=== PATIENT | male | born 1980 | race Two or more races ===

== ENCOUNTER 2019-07-20 20:53 | Inpatient (IN) | payer MEDICAID, OTHER ==
[~2019-07-20] VITALS: Ht 188 cm; Wt 110.7 kg
--- NOTE | 2019-07-20 20:55 | NUR ---
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 PT WAS TRIAGED AND TAKEN TO ER #4. PT WAS PLACED ON THE MONITOR AND CONTINUOUS PULSE OX. RESP EVEN AND UNLABORED. NO MEDICATIONS GIVEN IN THE FIELD. 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
--- NOTE | 2019-07-20 21:25 | NUR ---
IV INSERTION ATTEMPT X 2 UNSUCCESSFUL. PHLEOBOTMIST IS AT THE BEDSIDE AND UNABLE TO DRAW LABS.
--- NOTE | 2019-07-20 21:40 | NUR ---
PANEL BEATER IS AT THE BEDSIDE.
--- NOTE | 2019-07-20 21:49 | NUR ---
XRAY IS AT THE BEDSIDE.
[2019-07-20 21:58] LABS: BASOPHILS # (AUTO) 0.1 /CMM (0.0-0.2); BASOPHILS % (AUTO) 1.3 % (0.0-2.0); EOSINOPHILS % (AUTO) 1.8 % (0.0-6.0); HEMATOCRIT 41 % (39-51); HEMOGLOBIN 14.1 g/dL (13.5-17.5); LYMPHOCYTES # (AUTO) 2.1 /CMM (0.8-4.8); LYMPHOCYTES % (AUTO) 50.5 % (20.0-44.0); MEAN CORPUSCULAR HGB CONC 35 g/dl (31.0-36.0); MEAN CORPUSCULAR VOLUME 92 fL (80-96); MONOCYTES # (AUTO) 0.4 /CMM (0.1-1.30); MONOCYTES % (AUTO) 9.9 % (2.0-12.0); NEUTROPHILS # (AUTO) 1.5 /CMM (1.8-8.9); NEUTROPHILS % (AUTO) 36.5 % (43.0-81.0); PLATELET COUNT (AUTO) 190 /CMM (150-450); RED BLOOD CELL COUNT(AUTO) 4.42 MIL/uL (4.5-6.0); WHITE BLOOD COUNT (AUTO) 4.2 K/uL (4.3-11.0)
[2019-07-20 22:08] LABS: CALCIUM, SERUM 9.5 mg/dL (8.5-10.1); CARBON DIOXIDE 29 mmol/L (21-32); CHLORIDE 105 mmol/L (98-107); CREATININE 1.2 mg/dL (0.6-1.3); GLUCOSE 75 mg/dL (74-106); POTASSIUM 3.4 mmol/L (3.5-5.1); SODIUM SERUM 141 mmol/L (136-145); UREA NITROGEN, BLOOD 20 mg/dL (7-18)
[2019-07-20 22:16] LABS: ALANINE AMINOTRANSFERASE 31 U/L (12-78); ALBUMIN 3.6 g/dL (3.4-5.0); ALKALINE PHOSPHATASE 79 U/L (46-116); ASPARTATE AMINOTRANSFERASE 17 U/L (15-37); BILIRUBIN,DIRECT 0.1 mg/dL (0.0-0.2); BILIRUBIN,TOTAL 0.2 mg/dL (0.2-1.0); TOTAL PROTEIN, SERUM 7.7 g/dL (6.4-8.2)
[2019-07-20] MEDS ORDERED: IBUPROFEN 600 MG TABLET PO ONE ×2 (23:00→23:09)
--- NOTE | 2019-07-20 23:30 | NUR ---
Note zac in EDM - 07/20/19 at 2335 by [email or web address] PT IS AMBULATING WITH THE WALKER. PT HAS A CAM WALKER BOOT ON THE RT FOOT. PT HAS A SLOW STEADY GAIT. PT STATED THAT THE FOOT FEELS OK, BUT STATED THAT SHE IS WALKING SLOW DUE TO THE RT RIB PAIN. PT'S DAUGHTER IS ASSISTING THE PT.
--- NOTE | 2019-07-20 23:31 | NUR ---
REPORT GIVEN TO RASHI ASHER.
[2019-07-21] MEDS ORDERED: ONDANSETRON HCL/PF 4 MG/2 ML VIAL ONE (00:16)
[2019-07-21] MEDS ORDERED: MORPHINE SULFATE INJ 4 MG/ML DISP.SYRIN ONE (00:17)
[2019-07-21] MEDS ORDERED: ONDANSETRON HCL/PF 4 MG/2 ML VIAL IVP PRN (00:30)
[2019-07-21] MEDS ORDERED: POTASSIUM CHLORIDE 20 MEQ TAB.PRT.SR PO ONE (00:30)
[2019-07-21] MEDS ORDERED: MAGNESIUM HYDROXIDE 30 ML UDC PO PRN (00:30)
[2019-07-21] MEDS ORDERED: ACETAMINOPHEN 325 MG TABLET PO PRN (00:30)
[2019-07-21] MEDS ORDERED: HYDROCODONE/APAP 5/325MG 1 EACH TABLET PO PRN (00:30)
[2019-07-21] MEDS ORDERED: ONDANSETRON HCL/PF 4 MG/2 ML VIAL IVP ONE (00:30)
[2019-07-21] MEDS ORDERED: MORPHINE SULFATE INJ 2 MG/ML DISP.SYRIN IV ONE (00:30)
[2019-07-21] MEDS ORDERED: MAG HYDROX/AL HYDROX/SIMETH 30 ML UDC PO PRN (00:30)
[2019-07-21] MEDS ORDERED: Z GUARD REMEDY 2 OZ OINT TP PRN (00:30)
[2019-07-21 00:45] VITALS: BP 143/84
--- NOTE | 2019-07-21 00:55 | NUR ---
MS/ PILOT SUPERVISOR ADMITTING NOTES: RECEIVED PATIENT FROM ER VIA BED 0045. REPORT GIVEN BY KWAME ER NURSE. PATIENT ARRIVED IN STABLE CONDITION. A/OX4. VERBALLY RESPONSIVE AND ABLE TO MAKE NEEDS KNOWN. VITAL SIGNS TAKEN UPON ARRIVAL. BP: 143/66. HR:66 TEMP: 97.6 O2 SAT:97%. RR: 20. ON TELE MONITOR WITH READING OF SR WITH HR ON THE 60S. PATIENT IS ON ROOM AIR, BREATHING EVEN AND UNLABORED. NO SOB NOTED, NO S/S OF ACUTE DISTRESS OR DISCOMFORT. NO COMPLAINS OF PAIN AT THIS TIME. PER PATIENT "THE MORPHINE THEY GAVE ME IN THE ER HELPED". IV ACCESS LOCATED ON THE LEFT AC #20G, PATENT AND INTACT WITH 0.9% NS 1000 ML RUNNING AT 100MLS/HR. BELONGINGS CHECKED. SKIN ASSESSMENT DONE AND PICTURES DOCUMENTED. SAFETY PRECAUTIONS INITIATED. BED IS IN LOW LOCKED POSITION WITH HOB ELEVATED. SIDE RAILS UP X2. CALL LIGHT WITHIN REACH. WILL CONTINUE TO MONITOR PATIENT ACCORDINGLY.
[2019-07-21] MEDS: Magnesium 1GM/D5W 100ML PREMIX 100 ML IV SCH ×2 (01:33→02:45)
[2019-07-21] MEDS: IV NS 0.9% 1,000 ML IV SCH ×2 (01:33→14:51)
[2019-07-21 04:00] VITALS: BP 105/61
[2019-07-21 04:03] LABS: EOSINOPHILS % (AUTO) 2.6 % (0.0-6.0); HEMATOCRIT 39 % (39-51); HEMOGLOBIN 13.3 g/dL (13.5-17.5); LYMPHOCYTES # (AUTO) 2.2 /CMM (0.8-4.8); LYMPHOCYTES % (AUTO) 58.8 % (20.0-44.0); MEAN CORPUSCULAR HGB CONC 34 g/dl (31.0-36.0); MEAN CORPUSCULAR VOLUME 91 fL (80-96); MONOCYTES # (AUTO) 0.4 /CMM (0.1-1.30); MONOCYTES % (AUTO) 9.9 % (2.0-12.0); NEUTROPHILS # (AUTO) 1.1 /CMM (1.8-8.9); NEUTROPHILS % (AUTO) 27.7 % (43.0-81.0); PLATELET COUNT (AUTO) 168 /CMM (150-450); RED BLOOD CELL COUNT(AUTO) 4.26 MIL/uL (4.5-6.0); WHITE BLOOD COUNT (AUTO) 3.8 K/uL (4.3-11.0)
[2019-07-21 04:15] LABS: CREATININE 1.2 mg/dL (0.6-1.3); MAGNESIUM 2.5 mg/dL (1.8-2.4); PHOSPHORUS 4.1 mg/dL (2.5-4.9); POTASSIUM 3.6 mmol/L (3.5-5.1)
--- NOTE | 2019-07-21 06:11 | NUR ---
MS/WELDING MACHINE OPERATOR/TENDER CLOSING NOTES: PATIENT IS ASLEEP IN BED AND STABLE AND EASILY AROUSABLE ON VERBAL STIMULI. ABLE TO MAKE NEEDS KNOWN. A/O X4. HOB ELEVATED. ON ROOM AIR, BREATHING EVEN AND UNLABORED. NO SOB NOTED, NO S/S OF ACUTE DISTRESS. NO COMPLAINS OF PAIN AT THIS TIME. PATIENT SLEPT WELL THROUGHOUT THE SHIFT. KEPT PATIENT WARM AND COMFORTABLE. ALL NURSING NEEDS ATTENDED AND MET. ALL DUE MEDS GIVEN ORDERED. TOLERATED WELL. IV ACCESS ON THE LEFT AC #20G IS INTACT, AND PATENT, RUNNING NS @ 100MLS/HR. ON CARDIAC DIET. SAFETY MEASURES ARE KEPT IN PLACE. BED IS IN LOW , LOCKED POSITION WITH SIDE RAILS UP X2. CALL LIGHT WITHIN REACH. WILL ENDORSE TO DAY SHIFT NURSE FOR PANFILO.
--- NOTE | 2019-07-21 07:30 | NUR ---
RECEIVED PT. ALERT AND ORIENTED X4.ON TELE.NPO TILL SEEN BY DR. BRADFORD.
[2019-07-21 08:00] VITALS: BP 120/75
--- NOTE | 2019-07-21 08:30 | NUR ---
OFF FLOOR FOR CT ANGIO.
[2019-07-21] MEDS ORDERED: IV NS 0.9% 250 ML IV ONE (09:16)
[2019-07-21] MEDS ORDERED: CT SWABBABLE VALVE TRANS SET 1 EA INFUS.SET MC ONE (09:16)
[2019-07-21] MEDS ORDERED: IOHEXOL-350 100 ML VIAL IV ONE (09:16)
[2019-07-21] MEDS ORDERED: NITROGLYCERIN 0.4 MG/TAB BOTTLE SL ONE (09:30)
[2019-07-21] MEDS ORDERED: METOPROLOL TARTRATE INJ 5 MG/5 ML AMPUL IVP PRN (09:30)
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
[2019-07-21 12:00] VITALS: BP 119/75
--- NOTE | 2019-07-21 14:50 | NUR ---
Social service consult requested by Dr. Verduzco for homelessness. Pt. is a 38 year old male who was admitted to [facility] for chest pain. LUÍS met with the pt. bedside. Pt. is alert and oriented x 4. Pt. is cooperative and cordial with SW during the assessment. Pt. is from [place] and moved to [place] a few months ago. [facility]. Pt. receives GR and food stamps. LUÍS offered pt. intermediate placement, however, pt. declined. LUÍS informed pt. about [facility] and provided him with information to the center. Pt. denies any alcohol, drugs and cigarettes use. Pt. denies suicidal and homicidal ideations and visual/auditory hallucinations at this time. LUÍS to provide pt. with list of homeless intermediate/resources prior to discharge. Pt. will require a TAP card upon discharge.
[2019-07-21] MEDS ORDERED: NITROGLYCERIN 0.4 MG/TAB BOTTLE ONE (15:27)
[2019-07-21 16:00] VITALS: BP 135/70
--- NOTE | 2019-07-21 17:36 | NUR ---
CT OF CHEST DONE.
--- NOTE | 2019-07-21 20:01 | NUR ---
CERT PHARMACY TECH PM NOTES PATIENT CURRENTLY RESTING IN BED, A/O X4. NO SIGNS OF ACUTE DISTRESS NOTED. ABLE TO MAKE NEEDS KNOWN. DENIES PAIN OR DISCOMFORT AT THIS TIME. IV LOCATED ON JERED #20, PATENT AND INTACT. ON TELE MONITOR SB 58 HR. PATIENT AMBULATES INDEPENDENTLY. SAFETY PRECAUTIONS IN PLACE WITH BED IN LOWEST POSITION, LOCKED, BED ALARM ON, AND CALL LIGHT WITHIN REACH.
[2019-07-21 20:41] VITALS: BP 123/74
[2019-07-22] VITALS: BP 115/69
[2019-07-22] MEDS: IV NS 0.9% 1,000 ML IV SCH ×3 (02:04→16:30)
[2019-07-22 04:38] VITALS: BP 127/77
--- NOTE | 2019-07-22 07:07 | NUR ---
STEM SIZER CLOSING NOTES PATIENT IN BED SLEEPING, AROUSES EASILY. NO S/SX OF ACUTE DISTRESS NOTED. DENIES PAIN OR DISCOMFORT. ON TELE MONITOR WITH READING SB 60. IV LOCATED ON L AC #20. ALL NEEDS ATTENDEDD ANTICIPATED. SAFETY PRECAUTIONS IN PLACE WITH BED IN LOWEST POSITION, LOCKED, BED ALARM ON, AND CALL LIGHT WITHIN REACH.
--- NOTE | 2019-07-22 07:10 | NUR ---
ms rn received on bed, awake,alert,oriented x4,not in any form of distress, respirations even and unlabored,no sob noted,denies pain at this time,all needs attended.
[2019-07-22 08:00] VITALS: BP 135/88
--- NOTE | 2019-07-22 08:30 | NUR ---
ms espinosa breakfast served,due meds given,tolerated well.
--- NOTE | 2019-07-22 08:40 | NUR ---
ms rn was seen by dr. aldo williamson/ orders made and carried out.
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
[2019-07-22 16:00] VITALS: BP 123/78
--- NOTE | 2019-07-22 16:00 | NUR ---
ms rn on bed, no distress noted.
--- NOTE | 2019-07-22 17:17 | NUR ---
ms rn on bed, will monitor patient.
[2019-07-22 20:44] VITALS: BP 124/73
[2019-07-22] MEDS: ZOLPIDEM TARTRATE 5 MG TABLET PO PRN (21:06)
[2019-07-23] VITALS: BP 110/89
[2019-07-23 04:00] VITALS: BP 106/56
[2019-07-23] MEDS: IV NS 0.9% 1,000 ML IV SCH ×3 (05:16→21:30)
--- NOTE | 2019-07-23 06:38 | NUR ---
MS RN NOTES AWAKE & RESPONSIVE. NOT IN ANY DISTRESS. NO SOB NOTED. DENIES ANY PAIN OR DISCOMFORT AT THIS TIME. WITH IVF INFUSING WELL. MONITORED ACCORDINGLY. CALL LIGHT WITHIN REACH. BED IN LOWEST POSITION. SR UP X 2 FOR SAFETY. WILL ENDORSE TO NEXT SHIFT.
[2019-07-23 08:00] VITALS: BP 135/90
--- NOTE | 2019-07-23 08:00 | NUR ---
MS RN AM NOTES PATIENT CURRENTLY RESTING IN BED, A/O X4. NO SIGNS OF ACUTE DISTRESS NOTED. ABLE TO MAKE NEEDS KNOWN. DENIES CHEST PAIN.DENIES PAIN OR DISCOMFORT AT THIS TIME. IV LOCATED ON JERED #20, PATENT AND INTACT.WITH IVF NS INFUSING WELL AT 100 ML/HR. PATIENT AMBULATES INDEPENDENTLY. SAFETY PRECAUTIONS IN PLACE WITH BED IN LOWEST POSITION, LOCKED, BED ALARM ON, AND CALL LIGHT WITHIN REACH.
[2019-07-23 16:00] VITALS: BP 134/177
--- NOTE | 2019-07-23 17:19 | NUR ---
PT RESTING IN BED DENYING ANY CHEST PAIN OR DISTRESS.WITH ONGOING IVF OF D51/2 NS INFUSING WELL.CALL LIGHT PLACED WITHIN REACH.
--- NOTE | 2019-07-23 19:32 | NUR ---
MS RN RECEIVE PT IN BED A/O X4, STABLE AND NOT IN DISTRESS, NO CHEST PAIN AT THIS TIME. SAFETY MEASURES AT ALL TIMES. WILL CONT TO MTR.
[2019-07-23 20:00] VITALS: BP 104/65
[2019-07-23] MEDS: ZOLPIDEM TARTRATE 5 MG TABLET PO PRN (21:30)
--- NOTE | 2019-07-24 06:19 | NUR ---
PT ASLEEP AND EASILY AWAKEN, RESPIRATIONS EVEN AND UNLABORED, NO S/S OF DISTRESS, NO COMPLAIN OF CHEST PAIN AT THIS TIME. KEPT CLEAN, DRY AND COMFORTABLE. SAFETY MEASURES AT ALL TIMES. WILL ENDORSE NEXT SHIFT POC.
[2019-07-24] MEDS ORDERED: IV NS 0.9% 1,000 ML IV PRN (07:30)
--- NOTE | 2019-07-24 07:30 | NUR ---
MS/RN - Assessment Patient is A/O x 4, denies chest pain at this time, no apparent distress, stable on room air. IVF NS at 100 ml/hr on the LAC with no signs of infiltration. Skin is intact except for right arm scratch laughlin. Patient is ambulatory with steady gait. No labs today. timber mill worker provided homeless fci/resources to the patient and will be provided a TAP card upon discharge. All needs attended. Will continue with current plan of care
[2019-07-24 08:00] VITALS: BP 122/71
--- NOTE | 2019-07-24 10:00 | NUR ---
MS/RN - Notes Patient resting comfortably, requested to eat lunch first before leaving the hospital.
--- NOTE | 2019-07-24 13:30 | NUR ---
MS/RN - Notes Patient took a shower.
--- NOTE | 2019-07-24 15:40 | NUR ---
MS/RN - Discharge Patient is alert and oriented x 4, discharged to assisted in stable condition, remain afebrile, denies chest pain, not in any form of distress, ambulatory with steady gait, denies SI/HI, no visual or auditory hallucinations at this time. Reviewed discharge instructions with patient and he verbalized full understanding of all teachings including follow up with PCP in one week. Seek immediate medical attention for worsening symptoms, chest pain, shortness of breath, palpitations, abdominal pain or distention, intractable nausea and vomiting, diarrhea, hematochezia, melena, weakness, loss of consciousness, neurological deficit, or any other emergent concerns. All belongings with patient and he deny any missing items. Patient refused photos to be taken of skin, no breakdown. Saline lock removed on the LAC with catheter tip intact, no redness, no swelling noted at the site. Patient signed discharge paperwork/homeless waiver form and copies were given per protocol. Snacks, TAP card and appropriate clothing were given to the patient.
== END 2019-07-24 15:40 | disposition home or self-care (01) | DRG 203 ==
LOC: ER 20:55 → TELE 23:20 → MED 07-22 08:29
PROVIDERS: ADMIT Internal Medicine; ATTEND Internal Medicine
DX: M94.0 Chondrocostal junction syndrome [Tietze] (principal); I48.92 Unspecified atrial flutter; D64.9 Anemia, unspecified; I10 Essential (primary) hypertension; E87.6 Hypokalemia; E78.5 Hyperlipidemia, unspecified; E66.9 Obesity, unspecified; Z68.31 Body mass index [BMI] 31.0-31.9, adult; D72.819 Decreased white blood cell count, unspecified; D72.820 Lymphocytosis (symptomatic)
CPT/HCPCS: 36415; 71045-TC; 71250-TC; 75574; 80048-TC; 80061-TC; 80076-TC; 83615-TC; 83690-TC; 83735-TC; 84100-TC; 84484-TC; 85025-TC; 87081-TC; 93307-TC; G0378; J2270; J2405; J3475; J7030; J7050; Q9967

== ENCOUNTER 2019-07-24 23:05 | Emergency (ER) | payer MEDICAID ==
[~2019-07-24] VITALS: Ht 188 cm; Wt 110.7 kg
[2019-07-24 23:33] VITALS: BP 146/98
[2019-07-24] MEDS ORDERED: LORAZEPAM 1 MG TABLET ONE (23:56)
[2019-07-25] MEDS ORDERED: LORAZEPAM 1 MG TABLET PO ONE
== END 2019-07-25 00:21 | disposition home or self-care (01) ==
LOC: ER 23:06
DX: F41.9 Anxiety disorder, unspecified (principal); I48.91 Unspecified atrial fibrillation; Z60.2 Problems related to living alone

== ENCOUNTER 2024-03-28 17:39 | Emergency (ER) | payer MEDICAID, OTHER ==
[~2024-03-28] VITALS: Ht 185.4 cm; Wt 108.9 kg
[2024-03-28 18:44] LABS: BASOPHILS % (AUTO) 0.3 % (0.0-2.0); EOSINOPHILS # (AUTO) 0.1 K/uL (0.0-0.7); HEMATOCRIT 44 % (39-51); HEMOGLOBIN 14.9 g/dL (13.5-17.5); LYMPHOCYTES # (AUTO) 1.5 K/uL (0.8-4.8); LYMPHOCYTES % (AUTO) 41.1 % (20.0-44.0); MEAN CORPUSCULAR HEMOGLOBIN 31 PG (26.0-33.0); MEAN CORPUSCULAR HGB CONC 34 g/dl (31.0-36.0); MEAN CORPUSCULAR VOLUME 90 fL (80-96); MONOCYTES # (AUTO) 0.4 K/uL (0.1-1.30); MONOCYTES % (AUTO) 10.1 % (2.0-12.0); NEUTROPHILS # (AUTO) 1.6 K/uL (1.8-8.9); NEUTROPHILS % (AUTO) 45.5 % (43.0-81.0); PLATELET COUNT (AUTO) 183 K/uL (150-450); RED BLOOD CELL COUNT(AUTO) 4.83 MIL/uL (4.5-6.0); RED CELL DISTRIBUTION WIDTH 13.7 % (11.5-15.0); WHITE BLOOD COUNT (AUTO) 3.5 K/uL (4.3-11.0)
[2024-03-28 19:13] LABS: ALANINE AMINOTRANSFERASE 33 U/L (12-78); ALBUMIN 3.8 g/dL (3.4-5.0); ALKALINE PHOSPHATASE 92 U/L (46-116); ASPARTATE AMINOTRANSFERASE 21 U/L (15-37); BILIRUBIN,DIRECT 0.2 mg/dL (0.0-0.2); BILIRUBIN,TOTAL 1.2 mg/dL (0.2-1.0); CARBON DIOXIDE 29 mmol/L (21-32); CHLORIDE 102 mmol/L (98-107); CREATININE 1.2 mg/dL (0.6-1.3); GLUCOSE 75 mg/dL (74-106); LIPASE 63 U/L (16-77); POTASSIUM 3.7 mmol/L (3.5-5.1); SODIUM SERUM 141 mmol/L (136-145); TOTAL PROTEIN, SERUM 8.6 g/dL (6.4-8.2); UREA NITROGEN, BLOOD 18 mg/dL (7-18)
[2024-03-28 19:41] LABS: APPEARANCE,URINE CLEAR (CLEAR); BILIRUBIN,URINE NEGATIVE (NEGATIVE); BLOOD, URINE NEGATIVE Ery/uL (NEGATIVE); COLOR,URINE YELLOW (YELLOW); KETONES,URINE NEGATIVE (NEGATIVE); LEUKOCYTE ESTERASE ,URINE NEGATIVE (NEGATIVE); NITRITE, URINE NEGATIVE (NEGATIVE); PH,URINE 5.5 (5.0-8.0); PROTEIN,URINE NEGATIVE (NEGATIVE); UGLUCOSE NEGATIVE (NEGATIVE); UROBILINOGEN,URINE 0.2 EU/dL (0.2)
[2024-03-28 21:07] VITALS: BP 119/79; TEMP 97.9; O2SAT 98
== END 2024-03-28 21:07 | disposition home or self-care (01) ==
LOC: ER 17:39
DX: K92.1 Melena (principal); R07.89 Other chest pain; I48.91 Unspecified atrial fibrillation; Z60.2 Problems related to living alone
CPT/HCPCS: 99285; 74177; 71045; 93005; 85025; 80048; 83690; 80076; 81003; 36415; 84484 ×2; J7050; Q9967

== ENCOUNTER 2024-03-28 22:29 | Emergency (ER) | payer OTHER | END 2024-03-29 03:26 | disposition left against medical advice (07) | LOC: ER 22:34 | DX: F29 Unspecified psychosis not due to a substance or known physiological condition (principal); Z53.21 Procedure and treatment not carried out due to patient leaving prior to being seen by health care provider ==

== ENCOUNTER 2024-03-29 07:11 | Emergency (ER) | payer OTHER ==
[~2024-03-29] VITALS: Ht 185.4 cm; Wt 106.6 kg
[2024-03-29 07:21] VITALS: TEMP 98.2
[2024-03-29 08:58] LABS: APPEARANCE,URINE CLEAR (CLEAR); BILIRUBIN,URINE 1+ (NEGATIVE); BLOOD, URINE NEGATIVE Ery/uL (NEGATIVE); COLOR,URINE YELLOW (YELLOW); KETONES,URINE TRACE mg/dL (NEGATIVE); LEUKOCYTE ESTERASE ,URINE NEGATIVE (NEGATIVE); NITRITE, URINE NEGATIVE (NEGATIVE); PH,URINE 5.5 (5.0-8.0); PROTEIN,URINE TRACE mg/dl (NEGATIVE); UGLUCOSE NEGATIVE (NEGATIVE); UROBILINOGEN,URINE 0.2 EU/dL (0.2)
[2024-03-29 09:10] LABS: AMPHETAMINE, URINE NEGATIVE (NEGATIVE); BARBITURATE, URINE NEGATIVE (NEGATIVE); BENZODIAZEPINE, URINE NEGATIVE (NEGATIVE); CANNABINOID, URINE NEGATIVE (NEGATIVE); COCCAINE, URINE NEGATIVE (NEGATIVE); OPIATE, URINE NEGATIVE (NEGATIVE); PHENCYCLIDINE SCREEN,URINE NEGATIVE (NEGATIVE)
[2024-03-29 09:25] LABS: ADD URINE CULTURE NO; BACTERIA,URINE None seen /HPF (None Seen); MUCUS,URINE Rare /LPF (None Seen); RBC,URINE 0-2 /HPF (0-2); SQUAMOUS EPITHELIAL CELL,UR 0-2 /HPF (None Seen); WBC,URINE 0-2 /HPF (0-3)
[2024-03-29 13:54] LABS: ALANINE AMINOTRANSFERASE 32 U/L (12-78); ALBUMIN 4.5 g/dL (3.4-5.0); ALKALINE PHOSPHATASE 109 U/L (46-116); ASPARTATE AMINOTRANSFERASE 24 U/L (15-37); BILIRUBIN,DIRECT 0.3 mg/dL (0.0-0.2); BILIRUBIN,TOTAL 1.9 mg/dL (0.2-1.0); CALCIUM, SERUM 10.5 mg/dL (8.5-10.1); CARBON DIOXIDE 30 mmol/L (21-32); CHLORIDE 100 mmol/L (98-107); GLUCOSE 72 mg/dL (74-106); POTASSIUM 3.7 mmol/L (3.5-5.1); SALICYLATE < 3.0 mg/dL (2.8-20.0); SODIUM SERUM 141 mmol/L (136-145); UREA NITROGEN, BLOOD 16 mg/dL (7-18)
[2024-03-29 13:55] LABS: ACETAMINOPHEN <10 ug/ml (10-30); ALCOHOL, BLOOD < 3 mg/dL (0-10)
[2024-03-29 13:58] LABS: BASOPHILS % (AUTO) 1.2 % (0.0-2.0); EOSINOPHILS # (AUTO) 0.1 K/uL (0.0-0.7); EOSINOPHILS % (AUTO) 2.3 % (0.0-6.0); HEMATOCRIT 50 % (39-51); HEMOGLOBIN 17.1 g/dL (13.5-17.5); LYMPHOCYTES # (AUTO) 1.4 K/uL (0.8-4.8); LYMPHOCYTES % (AUTO) 45.6 % (20.0-44.0); MEAN CORPUSCULAR HEMOGLOBIN 31 PG (26.0-33.0); MEAN CORPUSCULAR HGB CONC 34 g/dl (31.0-36.0); MEAN CORPUSCULAR VOLUME 91 fL (80-96); MONOCYTES # (AUTO) 0.3 K/uL (0.1-1.30); MONOCYTES % (AUTO) 9.1 % (2.0-12.0); NEUTROPHILS # (AUTO) 1.2 K/uL (1.8-8.9); NEUTROPHILS % (AUTO) 41.8 % (43.0-81.0); PLATELET COUNT (AUTO) 180 K/uL (150-450); RED BLOOD CELL COUNT(AUTO) 5.49 MIL/uL (4.5-6.0)
[2024-03-29 16:36] VITALS: BP 132/79; O2SAT 99
== END 2024-03-29 18:57 ==
LOC: ER 07:11
DX: R45.851 Suicidal ideations (principal); I48.91 Unspecified atrial fibrillation; Z20.822 Contact with and (suspected) exposure to COVID-19; Z60.2 Problems related to living alone
CPT/HCPCS: 36415; 80048-TC; 80076-TC; 81001; 85025-TC; 98960; G0480